=== PATIENT | male | born 1950 | race Caucasian/White ===

== ENCOUNTER 2016-11-30 15:15 | Emergency (ER) | payer MEDICARE, OTHER ==
[2016-11-30] MEDS ORDERED: Nitroglycerin 0.4 MG Tab.SL ONE (15:30)
[2016-11-30] MEDS ORDERED: Nitroglycerin 0.4 MG Tab.SL SL PRN ×2 (15:31→15:32)
[2016-11-30] MEDS ORDERED: Aspirin 81 MG Tab.Chew PO ONE (15:32)
[2016-11-30] MEDS ORDERED: Sodium Chloride 0.9% 1,000 ML IV ONE (15:42)
[2016-11-30 15:58] LABS: CHLORIDE,CL 101 mmol/L (98-110); SODIUM,NA 136 mmol/L (136-146)
--- NOTE | 2016-11-30 16:04 | EDM.PDOC ---
ED HPI GENERAL MEDICAL PROBLEM - General Chief Complaint: Chest Pain Stated Complaint: CHEST PAIN Time Seen by Provider: 11/30/16 15:22 Source of Information: Reports: Patient History Limitations: Reports: No Limitations - History of Present Illness INITIAL COMMENTS - FREE TEXT/NARRATIVE: History of present illness: []Patient has had 2 days of chest congestion and pain. This pain is described as substernal, nonradiating, sharp and intermittent. He denies any shortness of breath or abdominal pain. Patient states he went to his neighbor's house and they checked his blood pressure was elevated. Patient had an PA in November 2012 and had 3 stents placed. Not had any problems since. That got him worried and came to the ER to be checked. Patient states that he drinks alcohol frequently and has an appointment with his primary care doctor coming up soon so he stopped drinking. Review of systems: As per history of present illness and below otherwise all systems reviewed and negative. Past medical history: As per history of present illness and as reviewed below otherwise noncontributory. Surgical history: As per history of present illness and as reviewed below otherwise noncontributory. Social history: No reported history of drug or alcohol abuse. Family history: As per history of present illness and as reviewed below otherwise noncontributory. Physical exam: General: Well developed, well nourished in NAD HEENT: Atraumatic, normocephalic, pupils reactive, negative for conjunctival pallor or scleral icterus, mucous membranes moist, throat clear, neck supple, nontender, trachea midline. Lungs: Clear to auscultation, breath sounds equal bilaterally, chest nontender. Heart: S1S2, regular, negative for clicks, rubs, or JVD. Abdomen: Soft, nondistended, nontender. Negative for masses or hepatosplenomegaly. Negative for costovertebral tenderness. Pelvis: Stable nontender. Genitourinary: Deferred. Rectal: Deferred. Extremities: Atraumatic, negative for cords or calf pain. Neurovascular unremarkable. Neuro: Awake, alert, oriented. Cranial nerves II through XII unremarkable. Cerebellum unremarkable. Motor and sensory unremarkable throughout. Exam nonfocal. Diagnostics: []Labs and EKG are negative, chest pain was alleviated with 1 nitroglycerin sublingual tablet. Therapeutics: []Aspirin and sublingual nitroglycerin given here in the ED with improvement Impression: []Acute coronary syndrome Plan: []I Recommended admission to this patient, however he refused as he has small puppies at home and has no one to let them out as well as a truck full of equipment and gasoline in the parking lot. Patient will sign out AMA. He understands the risks of possible and debilitation. He states that if his pain recurs he will come right back. I will discharge him with a new nitroglycerin prescription as his is 3 years old. Definitive disposition and diagnosis as appropriate pending reevaluation and review of above. - Related Data Allergies Allergy/AdvReac Type Severity Reaction Status Date / Time No Known Allergies Allergy Verified 01/15/16 18:49 Home Meds: Home Meds Carvedilol [Carvedilol] 1 tab PO ASDIRECTED 01/15/16 [History] Tamsulosin HCl [Tamsulosin HCl] 1 tab PO ASDIRECTED 01/15/16 [History] atorvaSTATin [Lipitor] 10 mg PO BEDTIME 01/15/16 [History] Nitroglycerin 0.4 mg SL ASDIRECTED #1 bottle 11/30/16 [Rx] Past Medical History HEENT History: Reports: None Cardiovascular History: Reports: High Cholesterol, Hypertension, PA, Stents Respiratory History: Reports: Other (See Below) Other Respiratory History: Esbestosis Gastrointestinal History: Reports: None Genitourinary History: Reports: Prostate Disorder Musculoskeletal History: Reports: None Neurological History: Reports: None Psychiatric History: Reports: None Endocrine/Metabolic History: Reports: None Hematologic History: Reports: None Immunologic History: Reports: None Oncologic (Cancer) History: Reports: None Dermatologic History: Reports: None - Infectious Disease History Infectious Disease History: Reports: Chicken Pox - Past Surgical History Head Surgeries/Procedures: Reports: None HEENT Surgical History: Reports: None Cardiovascular Surgical History: Reports: Carotid Stents Respiratory Surgical History: Reports: None GI Surgical History: Reports: None Male Surgical History: Reports: None Endocrine Surgical History: Reports: None Neurological Surgical History: Reports: None Musculoskeletal Surgical History: Reports: None Oncologic Surgical History: Reports: None Dermatological Surgical History: Reports: None Social & Family History - Family History Family Medical History: Noncontributory - Tobacco Use Smoking Status *Q: Never Smoker Second Hand Smoke Exposure: No - Caffeine Use Caffeine Use: Reports: Coffee - Alcohol Use Days Per Week of Alcohol Use: 6 Number of Drinks Per Day: 0 Total Drinks Per Week: 0 - Recreational Drug Use Recreational Drug Use: No ED ROS GENERAL - Review of Systems Review Of Systems: See Below ED EXAM, GENERAL - Physical Exam Exam: See Below (See history of present illness see history of present illness) Course - Vital Signs Last Recorded V/S: Last Vital Signs Temp 35.5 C 11/30/16 15:19 Pulse 82 11/30/16 15:50 Resp 20 11/30/16 15:50 BP 125/86 11/30/16 15:55 Pulse Ox 99 11/30/16 15:50 - Orders/Labs/Meds Orders: Active Orders 24 hr Category Date Time Status EKG Documentation Completion [RC] STAT Care 11/30/16 15:31 Active Chest 1V Frontal [CR] Stat Exams 11/30/16 15:33 Taken INR,PT,PROTHROMBIN TIME [COAG] Stat Lab 11/30/16 15:20 Received PTT,PARTIAL THROMBOPLSTIN TIME [COAG] Stat Lab 11/30/16 15:20 Received Sodium Chloride 0.9% [Normal Saline] 1,000 ml Med 11/30/16 15:42 Active IV .Bolus Saline Lock Insert [OM.PC] Stat Oth 11/30/16 15:31 Ordered Medication Orders Sodium Chloride (Normal Saline) 1,000 mls @ 250 mls/hr IV .Bolus ONE Stop: 11/30/16 19:41 Last Admin: 11/30/16 15:44 Dose: 250 mls/hr Labs: Laboratory Tests 11/30/16 11/30/16 11/30/16 Range/Units 15:20 15:20 15:20 WBC 3.90 L (4.0-11.0) K/uL RBC 4.94 (4.50-5.90) M/uL Hgb 15.8 (13.0-17.0) g/dL Hct 46.4 (38.0-50.0) % MCV 93.9 (80.0-98.0) fL MCH 32.0 (27.0-32.0) pg MCHC 34.1 (31.0-37.0) g/dL RDW Std Deviation 43.9 (28.0-62.0) fl RDW Coeff of Nhan 13 (11.0-15.0) % Plt Count 105 L (150-400) K/uL MPV 10.50 (7.40-12.00) fL Neut % (Auto) 72.0 (48.0-80.0) % Lymph % (Auto) 18.5 (16.0-40.0) % Bureau % (Auto) 9.0 (0.0-15.0) % Eos % (Auto) 0.5 (0.0-7.0) % Baso % (Auto) 0.0 (0.0-1.5) % Neut # (Auto) 2.8 (1.4-5.7) K/uL Lymph # (Auto) 0.7 (0.6-2.4) K/uL Bureau # (Auto) 0.4 (0.0-0.8) K/uL Eos # (Auto) 0.0 (0.0-0.7) K/uL Baso # (Auto) 0.0 (0.0-0.1) K/uL Nucleated RBC % 0.0 /100WBC Nucleated RBCs # 0 K/uL Sodium 136 (136-146) mmol/L Potassium 3.8 (3.5-5.1) mmol/L Chloride 101 (98-110) mmol/L Carbon Dioxide 23 (21-31) mmol/L BUN 9 (6.0-23.0) mg/dL Creatinine 0.8 (0.6-1.5) mg/dL Est Cr Clr Drug Dosing 104.04 mL/min Estimated GFR (MDRD) > 60.0 ml/min Glucose 121 H (60-110) mg/dL Calcium 9.2 (8.8-10.8) mg/dL Total Bilirubin 1.5 (0.1-1.5) mg/dL AST 104 H (5-40) IU/L ALT 96 H (8-54) IU/L Alkaline Phosphatase 79 (40-150) Troponin I < 0.10 (0.0-0.29) NG/ML Total Protein 8.1 H (6.0-8.0) g/dL Albumin 4.6 (3.4-4.8) g/dL Globulin 3.5 (2.0-3.5) g/dL Albumin/Globulin Ratio 1.3 (1.3-2.8) Lipase 36 (7-80) U/L Meds: Medications Generic Name Dose Route Start Last Admin Trade Name Freq PRN Reason Stop Dose Admin Sodium Chloride 1,000 mls @ 250 mls/hr 11/30/16 15:42 11/30/16 15:44 Normal Saline IV 11/30/16 19:41 250 mls/hr .Bolus ONE Administration Discontinued Medications Generic Name Dose Route Start Last Admin Trade Name Freq PRN Reason Stop Dose Admin Aspirin 324 mg 11/30/16 15:32 11/30/16 15:51 Aspirin PO 11/30/16 15:33 324 mg ONETIME ONE Administration Nitroglycerin 0.4 mg 11/30/16 15:31 11/30/16 15:32 Nitrostat SL 11/30/16 15:42 0.4 mg Q5M PRN Administration Chest Pain Nitroglycerin Confirm 11/30/16 15:30 11/30/16 15:55 Nitrostat Administered 11/30/16 15:31 Not Given Dose 1.2 mg .ROUTE .STK-MED ONE Nitroglycerin 0.4 mg 11/30/16 15:32 Nitrostat SL 11/30/16 15:43 Q5M PRN Chest Pain Departure - Departure Time of Disposition: 16:32 Disposition: Against Medical Advice 07 Condition: fair Clinical Impression: Hypertensive urgency Chest pain Qualifiers: Chest pain type: unspecified Qualified Code(s): R07.9 - Chest pain, unspecified Forms: ED Department Discharge Additional Instructions: The following information is given to patients seen in the emergency department who are being discharged to home. This information is to outline your options for follow-up care. We provide all patients seen in our emergency department with a follow-up referral. The need for follow-up, as well as the timing and circumstances, are variable depending upon the specifics of your emergency department visit. If you don't have a primary care physician on staff, we will provide you with a referral. We always advise you to contact your personal physician following an emergency department visit to inform them of the circumstance of the visit and for follow-up with them and/or the need for any referrals to a consulting specialist. The emergency department will also refer you to a specialist when appropriate. This referral assures that you have the opportunity for follow-up care with a specialist. All of these measure are taken in an effort to provide you with optimal care, which includes your follow-up. Under all circumstances we always encourage you to contact your private physician who remains a resource for coordinating your care. When calling for follow-up care, please make the office aware that this follow-up is from your recent emergency room visit. If for any reason you are refused follow-up, please contact the [facility] Emergency Department at and asked to speak to the emergency department charge nurse. Take nitroglycerin for chest pain as directed: 1 tablet sublingual at the onset of chest pain. May repeat times every 5 minutes for ongoing chest pain. If pain continues call 911. Take [address] [facility] [address] [place] [address] - My Orders Last 24 Hours: My Active Orders 11/30/16 15:20 INR,PT,PROTHROMBIN TIME [COAG] Stat PTT,PARTIAL THROMBOPLSTIN TIME [COAG] Stat 11/30/16 15:31 EKG Documentation Completion [RC] STAT Saline Lock Insert [OM.PC] Stat 11/30/16 15:33 Chest 1V Frontal [CR] Stat 11/30/16 15:42 Sodium Chloride 0.9% [Normal Saline] 1,000 ml IV .Bolus - Assessment/Plan Last 24 Hours: My Active Orders 11/30/16 15:20 INR,PT,PROTHROMBIN TIME [COAG] Stat PTT,PARTIAL THROMBOPLSTIN TIME [COAG] Stat 11/30/16 15:31 EKG Documentation Completion [RC] STAT Saline Lock Insert [OM.PC] Stat 11/30/16 15:33 Chest 1V Frontal [CR] Stat 11/30/16 15:42 Sodium Chloride 0.9% [Normal Saline] 1,000 ml IV .Bolus
--- NOTE | 2016-11-30 16:12 | CR ---
EXAMINATION: Portable chest radiograph. HISTORY: Shortness of breath. FINDINGS: The trachea is midline. The cardiomediastinal silhouette is within normal limits. No pulmonary infil trates, effusions or pneumothorax. Osseous structures appear unremarkable. IMPRESSION: No acute cardiopulmonary process.
[2016-11-30 17:30] VITALS: BP 131/89
== END 2016-11-30 16:50 | disposition left against medical advice (07) ==
LOC: MW.ED 15:15
DX: I16.0 Hypertensive urgency (principal); I24.9 Acute ischemic heart disease, unspecified; I10 Essential (primary) hypertension; I25.2 Old myocardial infarction; E78.00 Pure hypercholesterolemia, unspecified; Z95.5 Presence of coronary angioplasty implant and graft
CPT/HCPCS: 36415; 71010; 80053; 83690; 84484; 85025; 85610; 85730; 93005; 99285; A9270; J7040; 99284